=== PATIENT | female | born 2000 | race American Indian/Alaskan Native ===

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

== ENCOUNTER 2019-03-25 17:45 | Emergency (ER) | payer MEDICAID ==
[2019-03-25 18:26] VITALS: BP 110/68
[2019-03-25 19:17] LABS: Bilirubin,Urine NEG (Negative); Blood,Urine NEG (Negative); Color,Urine Yellow (Yellow); Mucus,Urine FEW /HPF; Protein,Urine <15 mg/dL mg/dL (Negative)
--- NOTE | 2019-03-25 19:20 | Emergency Department Report ---
HPI - General Chief Complaint: Urogenital-Female Time Seen by Provider: 03/25/19 18:31 - HPI HPI: 18-year-old female presents to the emergency department with a complaint of a few days of increased urinary frequency. She denies any dysuria, vaginal bleeding or discharge, nausea vomiting, fever. Patient says that she has a history of a previous UTI. She did not take the prescribed antibiotics at that time but had some other antibiotics at home that she took and the symptoms resolved. No primary care physician. ED Past Medical Hx - Past Medical History Previous Medical History?: Yes Additional medical history: frequent UTI - Surgical History Past Surgical History?: No - Social History Smoking Status: Current Every Day Smoker Substance Use Type: None - Medications Home Medications: Home Medications Medication Instructions Recorded Confirmed Last Taken Type Doxycycline Monohydrate 100 mg PO BID #20 capsule 09/28/18 Unknown Rx [Doxycycline Monohydrate CAP] Ibuprofen [Ibuprofen 800] 800 mg PO TID PRN #30 tablet 09/28/18 Unknown Rx ED Review of Systems ROS: Stated complaint: UTI Other details as noted in HPI Comment: All other systems reviewed and negative Constitutional: denies: chills, fever Gastrointestinal: denies: abdominal pain, vomiting Genitourinary: frequency. denies: dysuria, discharge Musculoskeletal: denies: back pain Physical Exam - Physical Exam Vital Signs: Vital Signs 03/25/19 17:48 Temperature 98.7 F Pulse Rate 74 Respiratory 16 Rate Blood Pressure 110/68 O2 Sat by Pulse 99 Oximetry Physical Exam: GENERAL: The patient is well-developed well-nourished. HENT: Normocephalic. Atraumatic. Patient has moist mucous membranes. EYES: Extraocular motions are intact. NECK: Supple. Trachea is midline. ABDOMEN: Abdomen is soft, nontender. Patient has normal bowel sounds. There is no abdominal distention. SKIN: Skin is warm and dry. NEURO: The patient is awake, alert, and oriented. The patient is cooperative. The patient has no focal neurologic deficits. Normal speech. MUSCULOSKELETAL: There is no tenderness or deformity. There is no evidence of acute injury. ED Course Vital Signs 03/25/19 17:48 Temperature 98.7 F Pulse Rate 74 Respiratory 16 Rate Blood Pressure 110/68 O2 Sat by Pulse 99 Oximetry ED Medical Decision Making - Medical Decision Making Patient presents with a complaint of a few days of increased urinary frequency. She denies any dysuria, back pain, fever, vaginal bleeding or discharge. Urinalysis is negative for any urinary tract infection, hematuria and the patient is not . Accu-Chek was 90 and the increased frequency does not appear secondary to any new onset diabetes. The patient has an appointment with a primary care physician next week. She will return to the ER with any worsening of her symptoms or any acute distress. - Differential Diagnosis UTI, , interstitial cystitis, diabetes Critical Care Time: No Critical care attestation.: If time is entered above; I have spent that time in minutes in the direct care of this critically ill patient, excluding procedure time. ED Disposition Clinical Impression: Urinary frequency Disposition: - TO HOME OR SELFCARE Is pt being admited?: No Condition: Stable Instructions: Dysuria (ED) Additional Instructions: Please follow-up with a primary care physician in the next few days. Return to the emergency Department with any worsening of your symptoms or any acute distress. Referrals: CAL PURVIS MD [Staff Physician] - 3-5 Days [facility] [Outside] - 3-5 Days Time of Disposition: 20:15
[2019-03-25 20:10] LABS: HCG Qualitative,Urine Negative (Negative)
== END 2019-03-25 20:29 | disposition home or self-care (01) ==
LOC: ED 17:45
DX: R35.0 Frequency of micturition (principal); F17.200 Nicotine dependence, unspecified, uncomplicated
CPT/HCPCS: 81001; 81025; 82962